=== PATIENT | female | born 1940 | race Caucasian/White ===

== ENCOUNTER 2017-04-04 08:40 | Emergency (ER) | payer MEDICARE, BC ==
[2017-04-04] MEDS ORDERED: OXYMETAZOLINE 0.05% NASL SPRAY 1 SPRAY BOTTLE ONE (08:53)
[2017-04-04] MEDS ORDERED: OXYMETAZOLINE 0.05% NASL SPRAY 1 SPRAY BOTTLE NASAL STA (08:58)
[2017-04-04] MEDS ORDERED: LIDOCAINE/EPINEPHR/TETRACAINE 5 ML BOTTLE TOPICAL ONE ×2 (08:58→10:13)
--- NOTE | 2017-04-04 09:22 | ED ---
General Adult HPI - General Chief complaint: ENT Stated complaint: nose bleed Time Seen by Provider: 04/04/17 08:56 Source: patient, RN notes reviewed Mode of arrival: wheelchair Limitations: no limitations - History of Present Illness Initial comments: Patient 77-year-old female who presents emergency room today with a chief complaint of epistaxis. She does admit that she had a mild nosebleed last night. She states she was able to stop. She states this started once again this morning she been unable to stop it. She does admit that she does have some what frequent nosebleeds but is always been able to control them at home. She states she has seen ENT in the past. Patient denies any blood thinners other than daily aspirin. She denies any other complaints or symptoms. Patient denies any recent fever, chills, shortness of breath, chest pain, back pain, abdominal pain, nausea or vomiting, numbness or tingling, dysuria or hematuria, constipation or diarrhea, headaches or visual changes, or any other complaints. Denies trauma - Related Data Home Medications Medication Instructions Recorded Confirmed Acetaminophen Tab [Tylenol Tab] 1,000 mg PO Q6HR PRN 05/16/16 04/04/17 Allopurinol [Zyloprim] 100 mg PO DAILY 05/16/16 04/04/17 Ascorbic Acid [Vitamin C] 500 mg PO DAILY 05/16/16 04/04/17 Aspirin [Adult Low Dose Aspirin EC] 81 mg PO HS 05/16/16 04/04/17 Atorvastatin [Lipitor] 10 mg PO HS 05/16/16 04/04/17 Indapamide [Lozol] 1.25 mg PO DAILY 05/16/16 04/04/17 Metoprolol Tartrate [Lopressor] 50 mg PO QAM 05/16/16 04/04/17 Multivitamins, Thera [Multivitamin] 1 tab PO DAILY 05/16/16 04/04/17 Valsartan [Diovan] 160 mg PO DAILY 05/16/16 04/04/17 Allergies Allergy/AdvReac Type Severity Reaction Status Date / Time Penicillins Allergy Rash/Hives Verified 04/04/17 09:22 Sulfa (Sulfonamide Allergy mouth sores Verified 04/04/17 09:22 Antibiotics) Review of Systems ROS Statement: Those systems with pertinent positive or pertinent negative responses have been documented in the HPI. ROS Other: All systems not noted in ROS Statement are negative. Past Medical History Past Medical History: Cancer, Hypertension, Osteoarthritis (OA) Additional Past Medical History / Comment(s): gout, hx skin cancer History of Any Multi-Drug Resistant Organisms: None Reported Past Surgical History: Section, Hysterectomy Additional Past Surgical History / Comment(s): gregg cataracts Past Anesthesia/Blood Transfusion Reactions: No Reported Reaction Past Psychological History: No Psychological Hx Reported Smoking Status: Never smoker Past Alcohol Use History: None Reported Past Drug Use History: None Reported - Past Family History Mother Family Medical History: Cancer General Exam - General Exam Comments Initial Comments: General: The patient is awake and alert, in no distress, and does not appear acutely ill. Eye: Pupils are equal, round and reactive to light, extra-ocular movements are intact. No nystagmus. There is normal conjunctiva bilaterally. No signs of icterus. Ears, nose, mouth and throat: There are moist mucous membranes and no oral lesions. Patient does have bright red blood coming from the right nostril. Does have blood in the posterior pharynx. No bleeding appreciated on the left nostril. Neck: The neck is supple, there is no tenderness or JVD. Cardiovascular: There is a regular rate and rhythm. No murmur, rub or gallop is appreciated. Respiratory: Lungs are clear to auscultation, respirations are non-labored, breath sounds are equal. No wheezes, stridor, rales, or rhonchi. Musculoskeletal: Normal ROM, no tenderness. Strength 5/5. Sensation intact. Pulses equal bilaterally 2+. Neurological: A&O x 3. CN II-XII intact, There are no obvious motor or sensory deficits. Coordination appears grossly intact. Speech is normal. Skin: Skin is warm and dry and no rashes or lesions are noted. Psychiatric: Cooperative, appropriate mood & affect, normal judgment. Limitations: no limitations Course Vital Signs 04/04/17 04/04/17 04/04/17 08:48 09:24 10:42 Temperature 98.1 F Pulse Rate 90 82 75 Respiratory 20 17 16 Rate Blood Pressure 186/88 176/78 158/70 O2 Sat by Pulse 97 96 97 Oximetry Procedures - Procedures Initial comment: LET solution was placed on cottonball placed into the right nostril after 2 sprays of Afrin. Patient did have this left in place for approximately 20 minutes. It was taken out bleed had stopped temporarily but the bleeding recurred. There is no sign of an anterior nosebleed. A Murocel packing was used and placed in the right nostril. Patient reexamined and observed for another 30 minutes. No rebleeding. Medical Decision Making - Medical Decision Making Patient examined at this time shows no signs of distress. Patient's right nostril does have a Merocel packing placed. Patient doing well. No blood in the posterior pharynx. Will be discharged home advised follow-up with her ENT doctor Dr. Brush. Was to return if any symptoms increase or worsen. Disposition Clinical Impression: Epistaxis Disposition: HOME SELF-CARE Condition: Good Instructions: Nosebleed (ED) Additional Instructions: Please follow-up with ENT in the next 1-2 days. Please leave packing in place until follow-up appointment. Please return to emergency room if the symptoms increase or worsen or for any other concerns. Referrals: Hayden Alfonso MD [Primary Care Provider] - 1-2 days Cosme Brush MD [STAFF PHYSICIAN] - 1-2 days Time of Disposition: 11:24
[2017-04-04 11:36] VITALS: BP 151/67; PULSE 77; RESP 18; TEMP 97.5
== END 2017-04-04 11:36 | disposition home or self-care (01) ==
LOC: EC 08:40
DX: R04.0 Epistaxis (principal); I10 Essential (primary) hypertension; M19.90 Unspecified osteoarthritis, unspecified site; Z85.828 Personal history of other malignant neoplasm of skin; Z79.82 Long term (current) use of aspirin; Z79.899 Other long term (current) drug therapy; Z88.0 Allergy status to penicillin; Z88.2 Allergy status to sulfonamides
CPT/HCPCS: 30901; 99283

== ENCOUNTER 2017-04-09 09:59 | Emergency (ER) | payer MEDICARE, BC ==
[2017-04-09 10:09] VITALS: BP 125/58; PULSE 71; RESP 20; TEMP 97.3
--- NOTE | 2017-04-09 10:40 | ED ---
ENT HPI - General Chief complaint: ENT Stated complaint: nose plug removal Time Seen by Provider: 04/09/17 10:24 Source: patient, RN notes reviewed Mode of arrival: ambulatory Limitations: no limitations - History of Present Illness Initial comments: 77-year-old female presents emergency department for nasal packing removal. Patient was here last and wants had a nose back secondary epistaxis. Patient states his been no leaking no drainage. Patient states bleeding has stopped. Patient states she has not been able see Dr. Hi ENT because he is out of the office until the . - Related Data Home Medications Medication Instructions Recorded Confirmed Acetaminophen Tab [Tylenol Tab] 1,000 mg PO Q6HR PRN 05/16/16 04/04/17 Allopurinol [Zyloprim] 100 mg PO DAILY 05/16/16 04/04/17 Ascorbic Acid [Vitamin C] 500 mg PO DAILY 05/16/16 04/04/17 Aspirin [Adult Low Dose Aspirin EC] 81 mg PO HS 05/16/16 04/04/17 Atorvastatin [Lipitor] 10 mg PO HS 05/16/16 04/04/17 Indapamide [Lozol] 1.25 mg PO DAILY 05/16/16 04/04/17 Metoprolol Tartrate [Lopressor] 50 mg PO QAM 05/16/16 04/04/17 Multivitamins, Thera [Multivitamin] 1 tab PO DAILY 05/16/16 04/04/17 Valsartan [Diovan] 160 mg PO DAILY 05/16/16 04/04/17 Allergies Allergy/AdvReac Type Severity Reaction Status Date / Time Penicillins Allergy Rash/Hives Verified 04/09/17 10:09 Sulfa (Sulfonamide Allergy mouth sores Verified 04/09/17 10:09 Antibiotics) Review of Systems ROS Statement: Those systems with pertinent positive or pertinent negative responses have been documented in the HPI. ROS Other: All systems not noted in ROS Statement are negative. Past Medical History Past Medical History: Cancer, Hypertension, Osteoarthritis (OA) Additional Past Medical History / Comment(s): gout, hx skin cancer History of Any Multi-Drug Resistant Organisms: None Reported Past Surgical History: Section, Hysterectomy Additional Past Surgical History / Comment(s): gregg cataracts Past Anesthesia/Blood Transfusion Reactions: No Reported Reaction Past Psychological History: No Psychological Hx Reported Smoking Status: Never smoker Past Alcohol Use History: None Reported Past Drug Use History: None Reported - Past Family History Mother Family Medical History: Cancer General Exam Limitations: no limitations General appearance: alert, in no apparent distress Head exam: Present: atraumatic, normocephalic, normal inspection Eye exam: Present: normal appearance, PERRL, EOMI. Absent: scleral icterus, conjunctival injection, periorbital swelling ENT exam: Present: normal oropharynx, mucous membranes moist, TM's normal bilaterally, normal external ear exam, other (Nasal packing noted to the right naris). Absent: normal exam Neck exam: Present: normal inspection, full ROM. Absent: tenderness, meningismus, lymphadenopathy Respiratory exam: Present: normal lung sounds bilaterally. Absent: respiratory distress, wheezes, rales, rhonchi, stridor Cardiovascular Exam: Present: regular rate, normal rhythm, normal heart sounds. Absent: systolic murmur, diastolic murmur, rubs, gallop, clicks Neurological exam: Present: alert, oriented X3, CN II-XII intact Course Vital Signs 04/09/17 10:07 Temperature 97.3 F L Pulse Rate 71 Respiratory 20 Rate Blood Pressure 125/58 O2 Sat by Pulse 99 Oximetry Procedures - Procedures Initial comment: Nasal packing was removed from the right nostril with no complications patient tolerated well there is no rebleeding noted Disposition Clinical Impression: Encounter for removal of nasal packing Disposition: HOME SELF-CARE Condition: Stable Instructions: Nosebleed (ED) Additional Instructions: Please return to the Emergency Department if symptoms worsen or any other concerns. Referrals: Hayden Alfonso MD [Primary Care Provider] - 1-2 days Brian Patterson DO [Doctor of Osteopathic Medicine] - 1-2 days Time of Disposition: 10:36
== END 2017-04-09 10:58 | disposition home or self-care (01) ==
LOC: EC 09:59
DX: Z48.00 Encounter for change or removal of nonsurgical wound dressing (principal); I10 Essential (primary) hypertension; M10.9 Gout, unspecified; M19.90 Unspecified osteoarthritis, unspecified site; Z79.82 Long term (current) use of aspirin; Z79.899 Other long term (current) drug therapy; Z88.0 Allergy status to penicillin; Z88.2 Allergy status to sulfonamides
CPT/HCPCS: 99281

== ENCOUNTER 2017-04-10 04:25 | Emergency (ER) | payer MEDICARE, BC ==
[2017-04-10] MEDS ORDERED: OXYMETAZOLINE 0.05% NASL SPRAY 1 SPRAY BOTTLE NASAL STA (05:04)
--- NOTE | 2017-04-10 06:14 | ED ---
General Adult HPI - General Chief complaint: ENT Stated complaint: NOSE BLEED Time Seen by Provider: 04/10/17 04:29 Source: patient, RN notes reviewed, old records reviewed Mode of arrival: wheelchair Limitations: no limitations - History of Present Illness Initial comments: This is a 77-year-old female here for evaluation of nosebleed, epistaxis. Right near. Patient has been in the ER twice in the past 5 days for similar symptoms. Patient denies trauma to the area today. She at this time is able to get the bleeding stopped with packing, Kleenex - Related Data Home Medications Medication Instructions Recorded Confirmed Acetaminophen Tab [Tylenol Tab] 1,000 mg PO Q6HR PRN 05/16/16 04/10/17 Allopurinol [Zyloprim] 100 mg PO DAILY 05/16/16 04/10/17 Ascorbic Acid [Vitamin C] 500 mg PO DAILY 05/16/16 04/10/17 Aspirin [Adult Low Dose Aspirin EC] 81 mg PO HS 05/16/16 04/10/17 Atorvastatin [Lipitor] 10 mg PO HS 05/16/16 04/10/17 Indapamide [Lozol] 1.25 mg PO DAILY 05/16/16 04/10/17 Metoprolol Tartrate [Lopressor] 50 mg PO QAM 05/16/16 04/10/17 Multivitamins, Thera [Multivitamin] 1 tab PO DAILY 05/16/16 04/10/17 Valsartan [Diovan] 160 mg PO DAILY 05/16/16 04/10/17 Allergies Allergy/AdvReac Type Severity Reaction Status Date / Time Penicillins Allergy Rash/Hives Verified 04/09/17 10:09 Sulfa (Sulfonamide Allergy mouth sores Verified 04/09/17 10:09 Antibiotics) Review of Systems ROS Statement: Those systems with pertinent positive or pertinent negative responses have been documented in the HPI. ROS Other: All systems not noted in ROS Statement are negative. Past Medical History Past Medical History: Cancer, Hypertension, Osteoarthritis (OA) Additional Past Medical History / Comment(s): gout, hx skin cancer History of Any Multi-Drug Resistant Organisms: None Reported Past Surgical History: Section, Hysterectomy Additional Past Surgical History / Comment(s): gregg cataracts Past Anesthesia/Blood Transfusion Reactions: No Reported Reaction Past Psychological History: No Psychological Hx Reported Smoking Status: Never smoker Past Alcohol Use History: None Reported Past Drug Use History: None Reported - Past Family History Mother Family Medical History: Cancer General Exam Limitations: no limitations General appearance: alert, in no apparent distress Head exam: Present: atraumatic, normocephalic, normal inspection Eye exam: Present: normal appearance, PERRL, EOMI. Absent: scleral icterus, conjunctival injection, periorbital swelling ENT exam: Present: normal exam, mucous membranes moist Neck exam: Present: normal inspection. Absent: tenderness, meningismus, lymphadenopathy Respiratory exam: Present: normal lung sounds bilaterally. Absent: respiratory distress, wheezes, rales, rhonchi, stridor Cardiovascular Exam: Present: regular rate, normal rhythm, normal heart sounds. Absent: systolic murmur, diastolic murmur, rubs, gallop, clicks GI/Abdominal exam: Present: soft, normal bowel sounds. Absent: distended, tenderness, guarding, rebound, rigid Extremities exam: Present: normal inspection, full ROM, normal capillary refill. Absent: tenderness, pedal edema, joint swelling, calf tenderness Back exam: Present: normal inspection Neurological exam: Present: alert, oriented X3, CN II-XII intact Psychiatric exam: Present: normal affect, normal mood Skin exam: Present: warm, dry, intact, normal color. Absent: rash Course Vital Signs 04/10/17 04/10/17 04/10/17 04:27 05:41 06:23 Temperature 98.6 F 99 F Pulse Rate 112 H 92 94 Respiratory 18 18 16 Rate Blood Pressure 217/88 157/68 156/68 O2 Sat by Pulse 98 97 98 Oximetry - Reevaluation(s) Reevaluation #1: Spoke with patient at great length regarding nosebleeds, concerns and worries. Patient again is not on blood thinners, denies any trauma to area. Bleeding is remained ceased in emergency room for greater than a half-hour. Medical Decision Making - Medical Decision Making 11/18/1989 ER for evaluation of right nosebleed, bleeding has remained C throughout entire ER stay, no need for further treatment, patient follow up with ENT Disposition Clinical Impression: Epistaxis Disposition: HOME SELF-CARE Condition: Good Instructions: Nosebleed (ED) Referrals: Hayden Alfonso MD [Primary Care Provider] - 1-2 days
[2017-04-10 06:24] VITALS: BP 156/68; PULSE 94; RESP 16; TEMP 99
== END 2017-04-10 06:23 | disposition home or self-care (01) ==
LOC: EC 04:25
DX: R04.0 Epistaxis (principal); M10.9 Gout, unspecified; I10 Essential (primary) hypertension; M19.90 Unspecified osteoarthritis, unspecified site; Z85.828 Personal history of other malignant neoplasm of skin; Z88.0 Allergy status to penicillin; Z88.2 Allergy status to sulfonamides; Z79.82 Long term (current) use of aspirin; Z79.899 Other long term (current) drug therapy
CPT/HCPCS: 99283

== ENCOUNTER 2018-02-19 11:17 | Day surgery (SDC) | payer MEDICARE, BC ==
[2018-02-14 16:21] VITALS: BMI 33.5
[~2018-02-19 11:17] MED LIST: LACTATED RINGERS 1,000 ML IV SCH; LIDOCAINE 1% 20 ML VIAL (10MG/ML) FOR IV START INTRADERMA PRN
[2018-02-19 12:30] VITALS: RESP 16; TEMP 98.6
[2018-02-19] MEDS ORDERED: PROPOFOL 10 MG/ML 20 ML VIAL IV ONE (12:51)
--- NOTE | 2018-02-19 13:11 | P.PCN ---
Date of Procedure: 02/19/18 Procedure(s) Performed: BRIEF HISTORY: Patient is a 77-year-old pleasant white female, scheduled for an elective colonoscopy as a part of screening for colorectal neoplasia. He was noted to have a positive Cologuard testing recently. PROCEDURE PERFORMED: Colonoscopy With snare polypectomy PREOPERATIVE DIAGNOSIS: Screening for colon cancer/positive cologard IV sedation per Anesthesia. PROCEDURE: After informed consent was obtained, the patient, was brought into the endoscopy unit. IV sedation was administered by Anesthesia under continuous monitoring. Digital rectal examination was normal. Initially the Olympus CF- 160 flexible video colonoscope was then inserted in the rectum, gradually advanced into the cecum without any difficulty. Careful examination was performed as the scope was gradually being withdrawn. Ileocecal valve and the appendiceal orifice were visualized and appeared normal. Prep was excellent. Mucosa of the cecum, ascending colon, transverse colon, descending colon, sigmoid colon, and rectum appeared normal. There was a 1 cm polyp noted in the mid rectum that was removed by snare polypectomy Retroflexion was performed in the rectum and no lesions were seen. The patient tolerated the procedure well. IMPRESSION: 1 cm rectal polyp status post polypectomy Rest of the colon appeared normal. RECOMMENDATIONS: Findings of this examination were discussed with the patient as well as her family. She was advised to follow with the biopsy results. If the biopsy shows a tubular adenoma, she can have a repeat colonoscopy in 3 years.
[2018-02-19 13:17] VITALS: PULSE 66
[2018-02-19 13:33] VITALS: BP 134/75
== END 2018-02-19 13:51 | disposition home or self-care (01) ==
LOC: ORWHC2ENDO 11:17
PROVIDERS: ATTEND Internal Medicine Gastroenterology
DX: D12.8 Benign neoplasm of rectum (principal); R19.5 Other fecal abnormalities; I10 Essential (primary) hypertension; E78.5 Hyperlipidemia, unspecified; M10.9 Gout, unspecified; Z85.828 Personal history of other malignant neoplasm of skin; Z79.899 Other long term (current) drug therapy; Z79.82 Long term (current) use of aspirin; Z88.0 Allergy status to penicillin; Z88.2 Allergy status to sulfonamides
CPT/HCPCS: 88305; 45385; J2704

== ENCOUNTER → 2018-06-19 | Outpatient (CLI) | payer MEDICARE, BC ==
--- NOTE | 2018-06-23 08:46 | MM ---
Reason for exam: screening (asymptomatic). Last mammogram was performed 1 year ago. History: Patient is postmenopausal and history of other cancer. Family history of breast cancer in 2 cousins, breast cancer in mother at age 80, and breast cancer in aunt at age 70. Benign cyst aspiration of the right breast. Physical Findings: A clinical breast exam by your physician is recommended on an annual basis and results should be correlated with mammographic findings. MG 3D Screening Mammo W/Cad Bilateral CC and MLO view(s) were taken. Prior study comparison: June 17, 2017, bilateral MG 3d screening mammo w/cad. June 15, 2016, bilateral MG 3d screening mammo w/cad. The breast tissue is heterogeneously dense. This may lower the sensitivity of mammography. No suspicious abnormality. ASSESSMENT: Benign, BI-RAD 2 RECOMMENDATION: Routine screening mammogram of both breasts in 1 year.
== END | disposition home or self-care (01) ==
LOC: RADMAMWWP 11:43
PROVIDERS: ATTEND Internal Medicine
DX: Z12.31 Encounter for screening mammogram for malignant neoplasm of breast (principal)
CPT/HCPCS: 77063; 77067

== ENCOUNTER → 2019-01-23 | Outpatient (CLI) | payer MEDICARE, BC ==
--- NOTE | 2019-01-23 09:50 | CT ---
EXAMINATION TYPE: CT abdomen pelvis w con DATE OF EXAM: 01/23/2019 COMPARISON: None HISTORY: Jaundice and urine discoloration CT DLP: 1518.9 mGycm CONTRAST: CT scan of the abdomen and pelvis is performed without Oral Contrast and with IV Contrast, patient in jected with 80 mL of Isovue 300. FINDINGS: LUNG BASES-: No visible nodule. No infiltrate. LIVER/GB: There is intra and extrahepatic biliary ductal dilatation noted. Consider ERCP to exclude d istal common bile duct lesion. Definite calculus in this region is not seen with certainty. There is evidence of cholelithiasis without gallbladder wall thickening or pericholecystic fluid. No intrahepa tic lesions seen. PANCREAS: No inflammation. No distinct mass. SPLEEN: No splenic enlargement. No lesion seen. ADRENALS: No nodule. No thickening. KIDNEYS/BLADDER: No hydronephrosis. No nephrolithiasis. No distinct renal mass. Urinary bladder g rossly unremarkable. BOWEL: Normal appendix. Normal bowel caliber. No inflammation. GENITAL ORGANS: No gross abnormality. LYMPH NODES: No greater than 1cm abdominal or pelvic lymph nodes are appreciated. AORTA: No significant abnormality. OSSEOUS STRUCTURES: No significant abnormality is seen. OTHER: No significant additional abnormality is seen. IMPRESSION: 1. There is intra and extrahepatic biliary ductal dilatation noted. Consider ERCP to exclude distal c ommon bile duct lesion. Definite calculus in this region is not seen with certainty. 2. Cholelithiasis.
== END | disposition home or self-care (01) ==
LOC: RADCTMAIN 07:43
PROVIDERS: ATTEND Internal Medicine
DX: K80.20 Calculus of gallbladder without cholecystitis without obstruction (principal); K83.8 Other specified diseases of biliary tract; N18.3 Chronic kidney disease, stage 3 (moderate)
CPT/HCPCS: 82565; 84520; 74177; 36415; Q9967

== ENCOUNTER 2019-01-30 13:32 | Emergency (ER) | payer MEDICARE, BC ==
[2019-01-30] MEDS ORDERED: SODIUM CHLORIDE 0.9% 1,000 ML IV STA (15:03)
[2019-01-30] MEDS ORDERED: ACETAMINOPHEN TAB 325 MG TAB PO STA ×2 (15:04→17:02)
[2019-01-30 15:28] LABS: Blood Urea Nitrogen 26 mg/dL (7-17); Sodium 125 mmol/L (137-145); Total Protein 6.4 g/dL (6.3-8.2)
[2019-01-30 15:33] LABS: INR 0.9 (<1.2); Partial Thromboplastin Time 24.9 sec (22.0-30.0)
[2019-01-30 15:38] LABS: Basophils # (A) 0.1 k/uL (0-0.2); Basophils % (A) 0 %; Eosinophils # (A) 0.1 k/uL (0-0.7); Eosinophils % (A) 1 %; HGB 10.9 gm/dL (11.4-16.0); Lymphocytes # (A) 1.2 k/uL (1.0-4.8); Lymphocytes % (A) 5 %; MCH 31.8 pg (25.0-35.0); MCHC 32.1 g/dL (31.0-37.0); MCV 99.1 fL (80.0-100.0); Macrocytosis Slight; Mean Platelet Volume 8.2; Monocytes # (A) 1.5 k/uL (0-1.0); Monocytes % (A) 6 %; Neutrophils # (A) 20.1 k/uL (1.3-7.7); Neutrophils % (A) 87 %; Platelet Count 227 k/uL (150-450); RBC 3.43 m/uL (3.80-5.40); RDW 15.6 % (11.5-15.5); WBC 23.1 k/uL (3.8-10.6)
[2019-01-30 15:43] LABS: ALT 272 U/L (9-52); AST 143 U/L (14-36); Albumin 3.9 g/dL (3.5-5.0); Alkaline Phosphatase 208 U/L (38-126); Anion Gap 12 mmol/L; Calcium 9.6 mg/dL (8.4-10.2); Carbon Dioxide 26 mmol/L (22-30); Chloride 87 mmol/L (98-107); Glucose 132 mg/dL (74-99); Potassium 5.1 mmol/L (3.5-5.1)
[2019-01-30 16:10] LABS: Amorphous Sediment,Urine Rare /hpf; Appearance,Urine Cloudy (Clear); Bilirubin,Urine 2+ (Negative); Blood,Urine Negative (Negative); Color,Urine Dark Brown; Glucose,Urine (UA) Negative (Negative); Hyaline Casts,Urine 17 /lpf (0-2); Ketones,Urine Negative (Negative); Leukocyte Esterase,Urine Negative (Negative); Mucus,Urine Rare /hpf; Nitrite,Urine Negative (Negative); PH, Urine 5.5 (5.0-8.0); Protein,Urine Trace (Negative); RBC,Urine 1 /hpf (0-5); Specific Gravity,Urine 1.017 (1.001-1.035); Squamous Epithelial Cell,Urine 1 /hpf (0-4); Urobilinogen,Urine <2.0 mg/dL (<2.0); WBC,Urine 45 /hpf (0-5); White Blood Cell Casts,Urine 9 /lpf (0)
[2019-01-30 16:19] LABS: Amylase 3107 U/L (30-110); Lipase >20000 U/L (23-300)
[2019-01-30] MEDS ORDERED: metroNIDAZOLE-NS PMX 500 MG in SALINE 1 100ML.BAG IVPB STA (16:49)
[2019-01-30] MEDS ORDERED: cefTRIAXone IN SWFI 1,000 MG/10 ML SYRINGE IVP STA (16:49)
--- NOTE | 2019-01-30 16:54 | ED ---
General Adult HPI - General Chief complaint: Abdominal Pain Stated complaint: abdominal pain Time Seen by Provider: 01/30/19 14:37 Source: patient, RN notes reviewed Mode of arrival: ambulatory Limitations: no limitations - History of Present Illness Initial comments: 78-year-old female with a past medical history of melanoma hyperlipidemia, hypertension, osteoarthritis presents to the emergency department for a chief complaint of abdominal pain. Patient states that 2 days ago she had a a placement of a Avilez covered metal stent in the CBD following biliary sphincterotomy. 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 Patient states that today he started upper abdominal pain and bloating. States that she called the surgeon who told her to come to the ER for possible pancreatitis. States she does think that her jaundice is improving since the stent was placed. Denies any fevers or chills at home. Patient has no other complaints at this time including shortness of breath, chest pain, nausea or vomiting, headache, or visual changes. - Related Data Home Medications Medication Instructions Recorded Confirmed Acetaminophen Tab [Tylenol Tab] 1,000 mg PO Q6HR PRN 05/16/16 01/30/19 Allopurinol [Zyloprim] 200 mg PO DAILY 05/16/16 01/30/19 Aspirin [Adult Low Dose Aspirin EC] 81 mg PO HS 05/16/16 01/30/19 Atorvastatin [Lipitor] 10 mg PO HS 05/16/16 01/30/19 Indapamide [Lozol] 1.25 mg PO BID 05/16/16 01/30/19 Metoprolol Tartrate [Lopressor] 50 mg PO DAILY@0800,1800 05/16/16 01/30/19 Multivitamins, Thera [Multivitamin] 1 tab PO DAILY 05/16/16 01/30/19 Valsartan [Diovan] 160 mg PO DAILY 05/16/16 01/30/19 amLODIPine [Norvasc] 5 mg PO DAILY@1800 02/14/18 01/30/19 Hydrocodone/Acetaminophen [[place] 0.5 tab PO Q6HR PRN 01/30/19 01/30/19 7.5-325] Allergies Allergy/AdvReac Type Severity Reaction Status Date / Time Penicillins Allergy Rash/Hives Verified 01/30/19 14:24 Sulfa (Sulfonamide Allergy mouth sores Verified 01/30/19 14:24 Antibiotics) lisinopril [From Zestril] AdvReac Cough Verified 01/30/19 14:24 Review of Systems ROS Statement: Those systems with pertinent positive or pertinent negative responses have been documented in the HPI. ROS Other: All systems not noted in ROS Statement are negative. Past Medical History Past Medical History: Cancer, Hyperlipidemia, Hypertension, Osteoarthritis (OA) Additional Past Medical History / Comment(s): Gout. Hx skin cancer - MELANOMA X1. POS COLOGUARD TEST. OCC BLOOD W/ BOWEL MOVEMENT. History of Any Multi-Drug Resistant Organisms: None Reported Past Surgical History: Section, Hysterectomy Additional Past Surgical History / Comment(s): C-S X3. Omero cataracts. COLONOS COPY Past Anesthesia/Blood Transfusion Reactions: No Reported Reaction Past Psychological History: No Psychological Hx Reported Smoking Status: Never smoker Past Alcohol Use History: None Reported, Rare Past Drug Use History: None Reported - Past Family History Mother Family Medical History: Cancer Father Family Medical History: Cancer General Exam Limitations: no limitations General appearance: alert, in no apparent distress Head exam: Present: atraumatic, normocephalic, normal inspection Eye exam: Present: normal appearance, PERRL, EOMI. Absent: scleral icterus, c onjunctival injection, periorbital swelling ENT exam: Present: normal exam, mucous membranes moist Neck exam: Present: normal inspection, full ROM. Absent: tenderness, meningismus, lymphadenopathy Respiratory exam: Present: normal lung sounds bilaterally. Absent: respiratory distress, wheezes, rales, rhonchi, stridor Cardiovascular Exam: Present: regular rate, normal rhythm, normal heart sounds. Absent: systolic murmur, diastolic murmur, rubs, gallop, clicks GI/Abdominal exam: Present: soft, tenderness (generalized tenderness of the abdomen worse in the epigastric area), normal bowel sounds. Absent: distended, guarding, rebound, rigid Neurological exam: Present: alert, oriented X3, CN II-XII intact Psychiatric exam: Present: normal affect, normal mood Skin exam: Present: other (jaundice) Course Vital Signs 01/30/19 01/30/19 01/30/19 13:57 15:22 16:00 Temperature 100.5 F H Pulse Rate 76 77 77 Respiratory 18 18 18 Rate Blood Pressure 144/60 148/57 129/55 O2 Sat by Pulse 97 96 97 Oximetry 01/30/19 01/30/19 17:00 17:35 Temperature 99.3 F Pulse Rate 82 85 Respiratory 20 20 Rate Blood Pressure 132/55 168/66 O2 Sat by Pulse 96 Oximetry Medical Decision Making - Medical Decision Making 78-year-old female status post stent placement in the CBD by ERCP 3 days ago presents to the emergency department for a chief complaint of abdominal pain. Patient spoke with Dr Francisco today and was told to come to the ER for possible pancreatitis. CBC does show a white blood cell count of 23 which is increased. CMP does show sodium of 125, patient given a liter of normal saline. Transaminitis seems to be improving as well as patient's hyperbilirubinemia. However amylase and lipase are elevated. Lipase is greater than 20,000 and amylase is 3107. I do not have any previous lipase values but this is Likely the cause of patient's pain. Urine negative. minimal pleural reaction at lung bases without pulmonary consolidation.CT shows there is placement of biliary stent compared to recent exam. There is new mesenteric edema and upper abdomen compared to last exam. There is a 1.5 cm hypodense area on the left lateral aspect of the biliary stent that could be low density a chronic mass. Minimal scarring in the lung bases. At this point I spoke with Dr. Rubio at [facility], recommends ER to ER transfer by EMS. - Lab Data Result diagrams: 01/30/19 14:25 01/30/19 14:25 Lab Results 01/30/19 01/30/19 01/30/19 Range/Units 14:25 14:25 14:25 WBC 23.1 H (3.8-10.6) k/uL RBC 3.43 L (3.80-5.40) m/uL Hgb 10.9 L (11.4-16.0) gm/dL Hct 34.0 (34.0-46.0) % MCV 99.1 (80.0-100.0) fL MCH 31.8 (25.0-35.0) pg MCHC 32.1 (31.0-37.0) g/dL RDW 15.6 H (11.5-15.5) % Plt Count 227 (150-450) k/uL Neutrophils % 87 % Lymphocytes % 5 % Monocytes % 6 % Eosinophils % 1 % Basophils % 0 % Neutrophils # 20.1 H (1.3-7.7) k/uL Lymphocytes # 1.2 (1.0-4.8) k/uL Monocytes # 1.5 H (0-1.0) k/uL Eosinophils # 0.1 (0-0.7) k/uL Basophils # 0.1 (0-0.2) k/uL Macrocytosis Slight PT (9.0-12.0) sec INR (<1.2) APTT (22.0-30.0) sec Sodium 125 L (137-145) mmol/L Potassium 5.1 (3.5-5.1) mmol/L Chloride 87 L (98-107) mmol/L Carbon Dioxide 26 (22-30) mmol/L Anion Gap 12 mmol/L BUN 26 H (7-17) mg/dL Creatinine 1.08 H (0.52-1.04) mg/dL Est GFR (CKD-EPI)AfAm 56 (>60 ml/min/1.73 sqM) Est GFR (CKD-EPI)NonAf 49 (>60 ml/min/1.73 sqM) Glucose 132 H (74-99) mg/dL Plasma Lactic Acid Krist[place] 1.1 (0.7-2.0) mmol/L Calcium 9.6 (8.4-10.2) mg/dL Total Bilirubin 8.0 H (0.2-1.3) mg/dL AST 143 H (14-36) U/L ALT 272 H (9-52) U/L Alkaline Phosphatase 208 H (38-126) U/L Total Protein 6.4 (6.3-8.2) g/dL Albumin 3.9 (3.5-5.0) g/dL Amylase 3107 H* (30-110) U/L Lipase >41396 H (23-300) U/L Urine Color Urine Appearance (Clear) Urine pH (5.0-8.0) Ur Specific [place] (1.001-1.035) Urine Protein (Negative) Urine Glucose (UA) (Negative) Urine Ketones (Negative) Urine Blood (Negative) Urine Nitrite (Negative) Urine Bilirubin (Negative) Urine Urobilinogen (<2.0) mg/dL Ur Leukocyte Esterase (Negative) Urine RBC (0-5) /hpf Urine WBC (0-5) /hpf Ur Squamous Epith Cells (0-4) /hpf Amorphous Sediment (None) /hpf Hyaline Casts (0-2) /lpf WBC Casts (0) /lpf Urine Mucus (None) /hpf 01/30/19 01/30/19 Range/Units 14:25 15:45 WBC (3.8-10.6) k/uL RBC (3.80-5.40) m/uL Hgb (11.4-16.0) gm/dL Hct (34.0-46.0) % MCV (80.0-100.0) fL MCH (25.0-35.0) pg MCHC (31.0-37.0) g/dL RDW (11.5-15.5) % Plt Count (150-450) k/uL Neutrophils % % Lymphocytes % % Monocytes % % Eosinophils % % Basophils % % Neutrophils # (1.3-7.7) k/uL Lymphocytes # (1.0-4.8) k/uL Monocytes # (0-1.0) k/uL Eosinophils # (0-0.7) k/uL Basophils # (0-0.2) k/uL Macrocytosis PT 10.0 (9.0-12.0) sec INR 0.9 (<1.2) APTT 24.9 (22.0-30.0) sec Sodium (137-145) mmol/L Potassium (3.5-5.1) mmol/L Chloride (98-107) mmol/L Carbon Dioxide (22-30) mmol/L Anion Gap mmol/L BUN (7-17) mg/dL Creatinine (0.52-1.04) mg/dL Est GFR (CKD-EPI)AfAm (>60 ml/min/1.73 sqM) Est GFR (CKD-EPI)NonAf (>60 ml/min/1.73 sqM) Glucose (74-99) mg/dL Plasma Lactic Acid Kristian (0.7-2.0) mmol/L Calcium (8.4-10.2) mg/dL Total Bilirubin (0.2-1.3) mg/dL AST (14-36) U/L ALT (9-52) U/L Alkaline Phosphatase (38-126) U/L Total Protein (6.3-8.2) g/dL Albumin (3.5-5.0) g/dL Amylase (30-110) U/L Lipase (23-300) U/L Urine Color Dark Brown Urine Appearance Cloudy H (Clear) Urine pH 5.5 (5.0-8.0) Ur Specific [place] 1.017 (1.001-1.035) Urine Protein Trace H (Negative) Urine Glucose (UA) Negative (Negative) Urine Ketones Negative (Negative) Urine Blood Negative (Negative) Urine Nitrite Negative (Negative) Urine Bilirubin 2+ H (Negative) Urine Urobilinogen <2.0 (<2.0) mg/dL Ur Leukocyte Esterase Negative (Negative) Urine RBC 1 (0-5) /hpf Urine WBC 45 H (0-5) /hpf Ur Squamous Epith Cells 1 (0-4) /hpf Amorphous Sediment Rare H (None) /hpf Hyaline Casts 17 H (0-2) /lpf WBC Casts 9 (0) /lpf Urine Mucus Rare H (None) /hpf Disposition Clinical Impression: Acute pancreatitis after endoscopic retrograde cholangiopancreatography (ERCP) Disposition: OTHER INSTITUTION NOT DEFINED Condition: Fair Is patient prescribed a controlled substance at d/c from ED?: No Referrals: Hayden Alfonso MD [Primary Care Provider] - 1-2 days Time of Disposition: 18:31 - Out of Hospital Transfer - Req. Specs Out of Hospital Transfer - Requested Specifics: Other Emergency Center ([facility])
--- NOTE | 2019-01-30 17:24 | XR ---
EXAMINATION TYPE: XR chest 2V DATE OF EXAM: 01/30/2019 COMPARISON: NONE HISTORY: Fever TECHNIQUE: Frontal and lateral views of the chest are obtained. FINDINGS: There is slight blunting of the costophrenic angles. Heart and mediastinum are normal. The re are no hilar masses. There are chest leads. Bony thorax is intact. IMPRESSION: Minimal pleural reaction at the lung bases. Normal heart. No pulmonary consolidation.
--- NOTE | 2019-01-30 18:01 | CT ---
EXAMINATION TYPE: CT abdomen pelvis w con DATE OF EXAM: 01/30/2019 COMPARISON: 01/23/2019 HISTORY: Post ERCP [address] DLP: 1022.5 mGycm Automated exposure control for dose reduction was used. TECHNIQUE: Helical acquisition of images was performed from the lung bases through the pelvis. CONTRAST: Performed without Oral Contrast and with IV Contrast, patient injected with 80 mL of Isovue 300. FINDINGS: There is mild atelectasis at the lung bases. Heart size is fairly normal. There is no pericardial eff usion. There is no pleural effusion or pneumothorax. There is air in the biliary tree. There is biliary stent noted in fairly good position. Bile ducts ar e not dilated. Spleen appears normal. There is 1.5 cm hypodense area in the pancreatic head region on the left lateral aspect of the biliary stent. Stomach appears normal. There is mild edema in the upp er abdominal small bowel mesentery. There is a contracted gallbladder with calcified gallstones. There is no adrenal mass. The kidneys show satisfactory contrast opacification. There is no hydroneph rosis. There is no retroperitoneal adenopathy. There is 2 cm cortical cyst medial left kidney. Ureter s are not dilated. There is no inguinal hernia. There is no evidence of free air. There is no ascites. There is no evide nce of bowel obstruction. There is moderate L3-4 and L4-5 bony spinal stenosis. There is no lumbar compression fracture. There is multilevel spondylotic changes in the lumbar spine. Bony pelvis is intact.. IMPRESSION: THERE IS PLACEMENT OF BILIARY STENT COMPARED TO RECENT EXAM. THERE IS NEW MESENTERIC EDEMA IN THE UPP ER ABDOMEN COMPARED TO LAST EXAM. 1.5 CM HYPODENSE AREA ON THE LEFT LATERAL ASPECT OF THE BILIARY STENT COULD BE LOW-DENSITY PANCREATIC MASS. FOLLOW-UP RECOMMENDED. THERE IS MINIMAL SCARRING OR SUBSEGMENTAL ATELECTASIS AT THE LUNG BASES UNCHANGED.
[2019-01-30] MEDS ORDERED: HYDROcodone/APAP 5-325MG 1 EACH TAB PO STA (20:25)
[2019-01-30 20:32] VITALS: BP 132/65; PULSE 81; RESP 20; TEMP 98.9
== END 2019-01-30 20:33 | disposition short-term general hospital (02) ==
LOC: EC 13:32
DX: K91.89 Other postprocedural complications and disorders of digestive system (principal); K85.90 Acute pancreatitis without necrosis or infection, unspecified; R74.8 Abnormal levels of other serum enzymes; J94.8 Other specified pleural conditions; R60.0 Localized edema; R91.8 Other nonspecific abnormal finding of lung field; R17 Unspecified jaundice; E78.5 Hyperlipidemia, unspecified; I10 Essential (primary) hypertension; M10.9 Gout, unspecified; M19.90 Unspecified osteoarthritis, unspecified site; Z88.0 Allergy status to penicillin; Z88.2 Allergy status to sulfonamides; Z88.8 Allergy status to other drugs, medicaments and biological substances; Z79.82 Long term (current) use of aspirin; Z79.899 Other long term (current) drug therapy; Z85.820 Personal history of malignant melanoma of skin; Z87.19 Personal history of other diseases of the digestive system; Z96.89 Presence of other specified functional implants
CPT/HCPCS: 36415; 80053; 82150; 83605; 83690; 85025; 85610; 85730; 81001; 87086; 71046; 74177; 99285; 96365; 96375; 96361; J0696; Q9967

== ENCOUNTER 2019-02-21 10:14 | Emergency (ER) | payer MEDICARE, BC ==
[2019-02-21 10:31] VITALS: TEMP 99.5
[2019-02-21] MEDS ORDERED: ONDANSETRON 4 MG/2 ML VIAL IVP STA (11:16)
[2019-02-21] MEDS ORDERED: SODIUM CHLORIDE 0.9% 1,000 ML IV ONE (11:16)
[2019-02-21] MEDS ORDERED: KETOROLAC 30 MG/ML 1 ML VIAL IVP STA (11:17)
--- NOTE | 2019-02-21 11:24 | ED ---
Abdominal Pain HPI - General Chief Complaint: Abdominal Pain Stated Complaint: abd/back pain, nausea Time Seen by Provider: 02/21/19 11:04 Source: patient Mode of arrival: wheelchair Limitations: no limitations - History of Present Illness Initial Comments: Patient is a 78-year-old female who presents with a chief complaint of abdominal pain for 3 days. Patient states that it is a constant pain. She cannot identify an inciting incident. There are no aggravating or alleviating factors. She admits nausea and vomiting. She says her bowel movements have been normal. She has a history of a recent diagnosis of pancreatic cancer for which she is being followed by hematology oncology, she had a biliary stent placed at [facility] several weeks ago. She states that since time of her surgery she had been feeling better up until her symptoms started. She denies chest pain or shortness of breath, lightheadedness or dizziness. She admits to nausea and vomiting. She states that she does not have any pain with urination nor changes in her bowel movements. - Related Data Home Medications Medication Instructions Recorded Confirmed Acetaminophen Tab [Tylenol Tab] 1,000 mg PO Q6HR PRN 05/16/16 01/30/19 Allopurinol [Zyloprim] 200 mg PO DAILY 05/16/16 01/30/19 Aspirin [Adult Low Dose Aspirin EC] 81 mg PO HS 05/16/16 01/30/19 Atorvastatin [Lipitor] 10 mg PO HS 05/16/16 01/30/19 Indapamide [Lozol] 1.25 mg PO BID 05/16/16 01/30/19 Metoprolol Tartrate [Lopressor] 50 mg PO DAILY@0800,1800 05/16/16 01/30/19 Multivitamins, Thera [Multivitamin] 1 tab PO DAILY 05/16/16 01/30/19 Valsartan [Diovan] 160 mg PO DAILY 05/16/16 01/30/19 amLODIPine [Norvasc] 5 mg PO DAILY@1800 02/14/18 01/30/19 Hydrocodone/Acetaminophen [[place] 0.5 tab PO Q6HR PRN 01/30/19 01/30/19 7.5-325] Allergies Allergy/AdvReac Type Severity Reaction Status Date / Time Penicillins Allergy Rash/Hives Verified 02/21/19 10:31 Sulfa (Sulfonamide Allergy mouth sores Verified 02/21/19 10:31 Antibiotics) lisinopril [From Zestril] AdvReac Cough Verified 02/21/19 10:31 Review of Systems ROS Statement: Those systems with pertinent positive or pertinent negative responses have been documented in the HPI. ROS Other: All systems not noted in ROS Statement are negative. Gastrointestinal: Reports: abdominal pain, nausea, vomiting Past Medical History Past Medical History: Cancer, Hyperlipidemia, Hypertension, Osteoarthritis (OA) Additional Past Medical History / Comment(s): Gout. Hx skin cancer - MELANOMA X1. POS COLOGUARD TEST. OCC BLOOD W/ BOWEL MOVEMENT. PANCREATIC CANCER History of Any Multi-Drug Resistant Organisms: None Reported Past Surgical History: Section, Hysterectomy Additional Past Surgical History / Comment(s): C-S X3. Omero cataracts. COLONOSCOPY Past Anesthesia/Blood Transfusion Reactions: No Reported Reaction Past Psychological History: No Psychological Hx Reported Smoking Status: Never smoker Past Alcohol Use History: None Reported, Rare Past Drug Use History: None Reported - Past Family History Mother Family Medical History: Cancer Father Family Medical History: Cancer General Exam Limitations: no limitations General appearance: alert, in no apparent distress Head exam: Present: atraumatic, normocephalic Eye exam: Present: normal appearance. Absent: scleral icterus ENT exam: Present: normal exam, mucous membranes moist Neck exam: Present: normal inspection Respiratory exam: Present: normal lung sounds bilaterally. Absent: respiratory distress, wheezes Cardiovascular Exam: Present: regular rate, normal rhythm GI/Abdominal exam: Present: soft, tenderness (Patient has generalized tenderness mostly in the epigastric region and some tenderness to palpation and percussion of the back). Absent: distended Rectal exam: Present: deferred Extremities exam: Present: normal inspection Back exam: Present: normal inspection Neurological exam: Present: alert, oriented X3 Psychiatric exam: Present: normal affect, normal mood Skin exam: Present: warm, dry, intact Course Vital Signs 02/21/19 02/21/19 02/21/19 10:29 13:26 13:30 Temperature 99.5 F Pulse Rate 76 78 Respiratory 16 20 Rate Blood Pressure 140/70 137/62 O2 Sat by Pulse 96 97 96 Oximetry 02/21/19 13:40 Temperature Pulse Rate 80 Respiratory 20 Rate Blood Pressure 131/57 O2 Sat by Pulse 98 Oximetry Medical Decision Making - Medical Decision Making Patient presents with chief complaint of abdominal pain. On initial evaluation, vitals are stable, patient is in no acute distress. Concern for pancreatitis given recent history of new diagnosis of pancreatic cancer and biliary stent placement. Patient will be evaluated with basic labs including liver profile and lipase. Urinalysis sent. Chest x-ray and troponin will also be drawn. Pending EKG at this time. 12:37 PM EKG performed at 1211 shows normal sinus rhythm with left axis deviation and a left bundle branch block. Ventricular rate is 73 bpm, segments within normal limits, no acute signs of ischemia. No previous EKGs to compare to, patient does not have any chest complaints today. Lab evaluation shows a lipase within normal limits, urinalysis shows no evidence of infection, cardiac enzymes are negative. Patient does have a white blood cell count of 18.8. Chest x-ray shows no acute process, currently pending computed tomography scan of the abdomen and pelvis. 2:[address] evaluation shows pneumobilia, likely secondary to recent stent placement, there is the previously known pancreatic head mass concerning for neoplasm, and gallbladder distention with wall thickening and pericholecystic fluid. Evaluat ion is consistent with a white count of 18.8. Case discussed with Dr. Garrett who recommends transfer to [facility] for continuity of care. I discussed the patient, she is agreeable. We'll contact transfer team for [facility]. Patient given her initial dose of Rocephin and Flagyl. 2:47 PM Case discussed with Dr. Ashley at [facility], he excess admission to CAT 2 for acute care surgery evaluation. Patient stable for transfer, patient family agreeable. - Lab Data Result diagrams: 02/21/19 11:42 02/21/19 11:42 Lab Results 02/21/19 02/21/19 02/21/19 Range/Units 11:27 11:42 11:42 WBC 18.8 H (3.8-10.6) k/uL RBC 3.91 (3.80-5.40) m/uL Hgb 12.6 (11.4-16.0) gm/dL Hct 37.5 (34.0-46.0) % MCV 95.7 (80.0-100.0) fL MCH 32.2 (25.0-35.0) pg MCHC 33.6 (31.0-37.0) g/dL RDW 15.2 (11.5-15.5) % Plt Count 166 (150-450) k/uL Neutrophils % 81 % Lymphocytes % 7 % Monocytes % 10 % Eosinophils % 1 % Basophils % 0 % Neutrophils # 15.2 H (1.3-7.7) k/uL Lymphocytes # 1.4 (1.0-4.8) k/uL Monocytes # 1.8 H (0-1.0) k/uL Eosinophils # 0.1 (0-0.7) k/uL Basophils # 0.1 (0-0.2) k/uL Sodium 131 L (137-145) mmol/L Potassium 4.7 (3.5-5.1) mmol/L Chloride 93 L (98-107) mmol/L Carbon Dioxide 26 (22-30) mmol/L Anion Gap 12 mmol/L BUN 18 H (7-17) mg/dL Creatinine 0.78 (0.52-1.04) mg/dL Est GFR (CKD-EPI)AfAm 83 (>60 ml/min/1.73 sqM) Est GFR (CKD-EPI)NonAf 72 (>60 ml/min/1.73 sqM) Glucose 146 H (74-99) mg/dL Calcium 9.5 (8.4-10.2) mg/dL Total Bilirubin 1.6 H (0.2-1.3) mg/dL AST 38 H (14-36) U/L ALT 40 (9-52) U/L Alkaline Phosphatase 67 (38-126) U/L Troponin I (0.000-0.034) ng/mL Total Protein 6.6 (6.3-8.2) g/dL Albumin 4.1 (3.5-5.0) g/dL Lipase 237 (23-300) U/L Urine Color Red Urine Appearance Clear (Clear) Urine pH 6.0 (5.0-8.0) Ur Specific [place] 1.029 (1.001-1.035) Urine Protein 2+ H (Negative) Urine Glucose (UA) Negative (Negative) Urine Ketones Trace H (Negative) Urine Blood Negative (Negative) Urine Nitrite Negative (Negative) Urine Bilirubin 1+ H (Negative) Urine Urobilinogen 2.0 (<2.0) mg/dL Ur Leukocyte Esterase Trace H (Negative) Urine RBC 5 (0-5) /hpf Urine WBC 3 (0-5) /hpf Ur Squamous Epith Cells 1 (0-4) /hpf Hyaline Casts 9 H (0-2) /lpf Urine Mucus Moderate H (None) /hpf 02/21/19 Range/Units 11:42 WBC (3.8-10.6) k/uL RBC (3.80-5.40) m/uL Hgb (11.4-16.0) gm/dL Hct (34.0-46.0) % MCV (80.0-100.0) fL MCH (25.0-35.0) pg MCHC (31.0-37.0) g/dL RDW (11.5-15.5) % Plt Count (150-450) k/uL Neutrophils % % Lymphocytes % % Monocytes % % Eosinophils % % Basophils % % Neutrophils # (1.3-7.7) k/uL Lymphocytes # (1.0-4.8) k/uL Monocytes # (0-1.0) k/uL Eosinophils # (0-0.7) k/uL Basophils # (0-0.2) k/uL Sodium (137-145) mmol/L Potassium (3.5-5.1) mmol/L Chloride (98-107) mmol/L Carbon Dioxide (22-30) mmol/L Anion Gap mmol/L BUN (7-17) mg/dL Creatinine (0.52-1.04) mg/dL Est GFR (CKD-EPI)AfAm (>60 ml/min/1.73 sqM) Est GFR (CKD-EPI)NonAf (>60 ml/min/1.73 sqM) Glucose (74-99) mg/dL Calcium (8.4-10.2) mg/dL Total Bilirubin (0.2-1.3) mg/dL AST (14-36) U/L ALT (9-52) U/L Alkaline Phosphatase (38-126) U/L Troponin I <0.012 (0.000-0.034) ng/mL Total Protein (6.3-8.2) g/dL Albumin (3.5-5.0) g/dL Lipase (23-300) U/L Urine Color Urine Appearance (Clear) Urine pH (5.0-8.0) Ur Specific [place] (1.001-1.035) Urine Protein (Negative) Urine Glucose (UA) (Negative) Urine Ketones (Negative) Urine Blood (Negative) Urine Nitrite (Negative) Urine Bilirubin (Negative) Urine Urobilinogen (<2.0) mg/dL Ur Leukocyte Esterase (Negative) Urine RBC (0-5) /hpf Urine WBC (0-5) /hpf Ur Squamous Epith Cells (0-4) /hpf Hyaline Casts (0-2) /lpf Urine Mucus (None) /hpf Disposition Clinical Impression: Acute cholecystitis, Pancreatic cancer Disposition: OTHER INSTITUTION NOT DEFINED Condition: Good Is patient prescribed a controlled substance at d/c from ED?: No Referrals: Hayden Alfonso MD [Primary Care Provider] - 1-2 days - Out of Hospital Transfer - Req. Specs Out of Hospital Transfer - Requested Specifics: Other Emergency Center ([facility], CAT 2 for ACS evaluation)
[2019-02-21 11:59] LABS: Basophils # (A) 0.1 k/uL (0-0.2); Basophils % (A) 0 %; Eosinophils # (A) 0.1 k/uL (0-0.7); Eosinophils % (A) 1 %; HCT 37.5 % (34.0-46.0); HGB 12.6 gm/dL (11.4-16.0); Lymphocytes # (A) 1.4 k/uL (1.0-4.8); Lymphocytes % (A) 7 %; MCH 32.2 pg (25.0-35.0); MCHC 33.6 g/dL (31.0-37.0); MCV 95.7 fL (80.0-100.0); Mean Platelet Volume 7.9; Monocytes # (A) 1.8 k/uL (0-1.0); Monocytes % (A) 10 %; Neutrophils # (A) 15.2 k/uL (1.3-7.7); Neutrophils % (A) 81 %; Platelet Count 166 k/uL (150-450); RBC 3.91 m/uL (3.80-5.40); RDW 15.2 % (11.5-15.5); WBC 18.8 k/uL (3.8-10.6)
[2019-02-21 12:03] LABS: Appearance,Urine Clear (Clear); Bilirubin,Urine 1+ (Negative); Blood,Urine Negative (Negative); Color,Urine Red; Glucose,Urine (UA) Negative (Negative); Hyaline Casts,Urine 9 /lpf (0-2); Ketones,Urine Trace (Negative); Leukocyte Esterase,Urine Trace (Negative); Mucus,Urine Moderate /hpf; Nitrite,Urine Negative (Negative); Protein,Urine 2+ (Negative); RBC,Urine 5 /hpf (0-5); Specific Gravity,Urine 1.029 (1.001-1.035); Squamous Epithelial Cell,Urine 1 /hpf (0-4); WBC,Urine 3 /hpf (0-5)
[2019-02-21 12:17] LABS: Albumin 4.1 g/dL (3.5-5.0); Calcium 9.5 mg/dL (8.4-10.2); Total Bilirubin 1.6 mg/dL (0.2-1.3); Total Protein 6.6 g/dL (6.3-8.2)
[2019-02-21 12:27] LABS: Potassium 4.7 mmol/L (3.5-5.1)
--- NOTE | 2019-02-21 12:32 | XR ---
EXAMINATION TYPE: XR chest 2V DATE OF EXAM: 02/21/2019 HISTORY: Pain. REFERENCE: Previous study dated 01/30/2019. FINDINGS: There is a small, left pleural reaction. The lungs appear clear. Pleural spaces are clear. Heart size is upper limits of normal. IMPRESSION: CHRONIC LEFT PLEURAL REACTION.
[2019-02-21 13:42] VITALS: BP 131/57; PULSE 80; RESP 20
--- NOTE | 2019-02-21 14:01 | CT ---
EXAMINATION TYPE: CT abdomen pelvis w con DATE OF EXAM: 02/21/2019 REFERENCE: Previous study dated 01/30/2019. HISTORY: Pain HISTORY: Pain, recent diagnosis of pancreatic CA CT DLP: 1502.9 mGy Automated exposure control for dose reduction was used. TECHNIQUE: Helical acquisition through the abdomen and pelvis was obtained following the oral ingesti on of without Oral Contrast and following intravenous administration of 100 mL of Isovue 300. The bryson a was reformatted in axial, coronal and sagittal projections. FINDINGS: There is dependent atelectasis in the dependent portions of the lungs. There is no pleural or pericardial fluid. The heart is minimally enlarged. There is a small sliding hiatal hernia. There is pneumobilia. There is an endotracheal biliary stent extending to the level of the head of th e pancreas. There is some hypodensity surrounding the distal portion of the stent. This may represent the patient's known cancer. The pancreatic duct is visualized but not enlarged. The gallbladder is d istended. Gallbladder wall thickening and cholelithiasis. There is fat stranding adjacent to the gall bladder. The spleen is normal. Both adrenal glands are normal. Both kidneys demonstrate function. There is a 2 cm, simple appearing left renal cyst, unchanged from previous. There is mild atheromatous calcification of the visualized arterial tree. There is no significant retroperitoneal, iliac or inguinal adenopathy. The bladder is not distended. The uterus and ovaries are not visualized. There is modest free fluid within the pelvis. There is no significant diverticular change and there is no radiographic evidence of diverticulitis. The majority of the left side of the colon is collapsed making it difficult to assess colonic wall th ickness. The appendix is not visualized. Small bowel loops are unremarkable. There is hypertrophic spondylosis and facet arthropathy within the spine. IMPRESSION: 1. EVIDENCE OF ACUTE CHOLECYSTITIS WITH GALLBLADDER WALL THICKENING PERICHOLECYSTIC FLUID AND ADJACEN T FAT STRANDING. 2. EVIDENCE OF THE PATIENT'S KNOWN PANCREATIC CANCER WITH PNEUMOBILIA. 3. SMALL HIATAL HERNIA. 4. SIMPLE APPEARING, 2 CM LEFT RENAL CYST. 5. POSSIBLE LEFT SIDE OF THE COLON. PLEASE CORRELATE CLINICALLY TO EXCLUDE COLITIS. 6. DEGENERATIVE CHANGES WITHIN THE SPINE.
[2019-02-21] MEDS ORDERED: cefTRIAXone IN SWFI 1,000 MG/10 ML SYRINGE IVP STA (14:12)
[2019-02-21] MEDS ORDERED: metroNIDAZOLE-NS PMX 500 MG in SALINE 1 100ML.BAG IVPB STA (14:12)
== END 2019-02-21 15:26 | disposition other institution (70) ==
LOC: EC 10:14
DX: K81.9 Cholecystitis, unspecified (principal); C25.9 Malignant neoplasm of pancreas, unspecified; I45.10 Unspecified right bundle-branch block; E78.5 Hyperlipidemia, unspecified; I10 Essential (primary) hypertension; Z85.820 Personal history of malignant melanoma of skin; Z90.710 Acquired absence of both cervix and uterus; Z79.82 Long term (current) use of aspirin; Z96.89 Presence of other specified functional implants; Z79.899 Other long term (current) drug therapy; Z88.0 Allergy status to penicillin; Z88.2 Allergy status to sulfonamides; Z88.8 Allergy status to other drugs, medicaments and biological substances
CPT/HCPCS: 36415; 93005; 80053; 83690; 84484; 85025; 81001; 71046; 74177; 99285; 96365; 96375 ×3; 96361 ×2; J2405; J0696; J1885; Q9967

== ENCOUNTER → 2019-03-19 | Outpatient (CLI) | payer MEDICARE, BC ==
--- NOTE | 2019-03-19 14:45 | US ---
EXAMINATION TYPE: US venous doppler duplex UE DATE OF EXAM: 03/19/2019 COMPARISON: NONE CLINICAL HISTORY: M79.622,M79.621 PAIN IN RT AND LT UPPER LIMBS. Patient states having a port placed in right side on 03/11/2019. On baby aspirin. No redness or swelling. Patient states she is uncomfo rtable she she lays on her side. Patient states having IV in left arm. SIDE PERFORMED: Bilateral Right Arm: Negative for DVT Left Arm: Negative for DVT. Positive for SVT in left cephalic vein superior and at brachial fossa. Grayscale, color doppler, spectral doppler imaging performed of the deep veins of the bilateral upper extremities. There is normal flow, compressibility and vascular waveforms. IMPRESSION: Acute superficial venous thrombosis left cephalic vein.
== END | disposition home or self-care (01) ==
LOC: RADUSWWP 13:05
PROVIDERS: ATTEND Internal Medicine Hematology & Oncology
DX: I82.612 Acute embolism and thrombosis of superficial veins of left upper extremity (principal); Z88.0 Allergy status to penicillin; Z88.2 Allergy status to sulfonamides; Z88.8 Allergy status to other drugs, medicaments and biological substances
CPT/HCPCS: 93970

== ENCOUNTER → 2019-03-24 | Outpatient (CLI) | payer MEDICARE, BC ==
--- NOTE | 2019-03-24 12:19 | XR ---
EXAMINATION TYPE: XR shoulder complete RT DATE OF EXAM: 03/24/2019 CLINICAL HISTORY: Right shoulder pain with no stated injury. TECHNIQUE: Three views of the right shoulder are obtained. COMPARISON: None. FINDINGS: There is no acute fracture/dislocation evident in the right shoulder. Right-sided Mediport is partially visualized. The acromioclavicular joint demonstrates mild arthropathy with small margin al osteophytes the glenohumeral joint space appears within normal limits. The visualized ribs are in tact and unremarkable. IMPRESSION: There is no acute fracture or dislocation in the right shoulder. Mild acromioclavicular arthropathy. Partially visualized right Mediport.
--- NOTE | 2019-03-24 12:24 | XR ---
EXAMINATION TYPE: XR chest 2V DATE OF EXAM: 03/24/2019 COMPARISON: 02/21/2019 HISTORY: 79-year-old female right arm pain. TECHNIQUE: Frontal and lateral views FINDINGS: Right anterior chest wall injection port with catheter tip at the mid SVC level. Heart normal size. A gurvinder and pulmonary vasculature are within normal limits. Mild interstitial prominence has a chronic a ppearance. No consolidation or pleural effusion. Moderate endplate spondylosis midthoracic spine. IMPRESSION: No acute cardiopulmonary process.
--- NOTE | 2019-03-24 12:34 | XR ---
EXAMINATION TYPE: XR humerus RT DATE OF EXAM: 03/24/2019 CLINICAL HISTORY: Nontraumatic right arm pain TECHNIQUE: Two views of the right humerus are obtained. COMPARISON: None. FINDINGS: There is partial visualization of the right Mediport. There is no acute fracture or disloca tion seen in the right humerus. The right shoulder and elbow joints appear within normal limits othe r than mild acromio clavicular arthropathy. The overlying soft tissue appears within normal limits. IMPRESSION: No acute fracture or dislocation is evident in the right humerus.
--- NOTE | 2019-03-24 12:35 | XR ---
EXAMINATION TYPE: XR clavicle RT DATE OF EXAM: 03/24/2019 COMPARISON: NONE HISTORY: 79-year-old female right arm pain TECHNIQUE: 2 views FINDINGS: Moderate degenerative joint space narrowing with marginal spurring at the AC joint. Subacromial space is preserved. Clavicle shows no evidence for acute fracture. IMPRESSION: Moderate AC joint OA. Clavicle without acute osseous abnormality seen.
== END | disposition home or self-care (01) ==
LOC: RADXRMAIN 11:28
PROVIDERS: ATTEND Internal Medicine Hematology & Oncology
DX: M19.011 Primary osteoarthritis, right shoulder (principal); I10 Essential (primary) hypertension; C25.9 Malignant neoplasm of pancreas, unspecified; M10.9 Gout, unspecified
CPT/HCPCS: 71046

== ENCOUNTER 2019-05-14 14:34 | Emergency (ER) | payer MEDICARE, BC ==
[2019-05-14] MEDS ORDERED: SODIUM CHLORIDE 0.9% 1,000 ML IV STA (15:05)
--- NOTE | 2019-05-14 15:25 | ED ---
General Adult HPI - General Chief complaint: Recheck/Abnormal Lab/Rx Stated complaint: abnormal labs, sent by Time Seen by Provider: 05/14/19 14:55 Source: patient, RN notes reviewed, old records reviewed Mode of arrival: ambulatory Limitations: no limitations - History of Present Illness Initial comments: 79-year-old female patient past history significant for pancreatic cancer, currently receiving chemotherapy presents to ED with chief complaint of hyponatremia. Patient reports that she had labs drawn 2 days ago at [facility] while receiving chemotherapy and displayed a sodium level of 123. Patient is asymptomatic. Patient presents to ED at the request of primary care physician for repeat sodium level. Patient denies any point at this time. Systemic: Pt denies fatigue, fever/chills, rash. Pt denies weakness, night sweats, weight loss. Neuro: Pt denies headache, visual disturbances, syncope or pre-syncope. HEENT: Pt denies ocular discharge or irritation, otalgia, rhinorrhea, pharyngitis or notable lymphadenopathy. Cardiopulmonary: Pt denies chest pain, SOB, heart palpitations, dyspnea on exertion. Abdominal/GI: Pt denies abdominal pain, n/v/d. : Pt denies dysuria, burning w/ urination, frequency/urgency. Denies new onset urinary or bowel incontinence. MSK: Pt denies myalgia, loss of strength or function in extremities. Neuro: Pt denies new onset weakness, paresthesias. - Related Data Home Medications Medication Instructions Recorded Confirmed Allopurinol [Zyloprim] 200 mg PO DAILY 05/16/16 05/06/19 Atorvastatin [Lipitor] 10 mg PO HS 05/16/16 05/06/19 Indapamide [Lozol] 2.5 mg PO DAILY 05/16/16 05/06/19 Metoprolol Tartrate [Lopressor] 50 mg PO BID 05/16/16 05/06/19 Multivitamins, Thera [Multivitamin] 1 tab PO HS 05/16/16 05/06/19 Valsartan [Diovan] 160 mg PO DAILY 05/16/16 05/06/19 amLODIPine [Norvasc] 5 mg PO DAILY@1800 02/14/18 05/06/19 Ascorbic Acid [Vitamin C] 500 mg PO DAILY 02/21/19 05/06/19 Previous Rx's Medication Instructions Recorded Nitrofurantoin Monohyd/M-Cryst 100 mg PO Q12HR 5 Days #10 cap 05/14/19 [Macrobid] Allergies Allergy/AdvReac Type Severity Reaction Status Date / Time Penicillins Allergy Rash/Hives Verified 05/14/19 14:41 Sulfa (Sulfonamide Allergy mouth sores Verified 05/14/19 14:41 Antibiotics) lisinopril [From Zestril] AdvReac Cough Verified 05/14/19 14:41 Review of Systems ROS Statement: Those systems with pertinent positive or pertinent negative responses have been documented in the HPI. ROS Other: All systems not noted in ROS Statement are negative. Past Medical History Past Medical History: Cancer, Hyperlipidemia, Hypertension, Osteoarthritis (OA) Additional Past Medical History / Comment(s): Gout. Hx skin cancer - MELANOMA X1. POS COLOGUARD TEST. OCC BLOOD W/ BOWEL MOVEMENT. PANCREATIC CANCER History of Any Multi-Drug Resistant Organisms: None Reported Past Surgical History: Section, Hysterectomy Additional Past Surgical History / Comment(s): C-S X3. Omero cataracts. COLONOSC OPY Past Anesthesia/Blood Transfusion Reactions: No Reported Reaction Past Psychological History: No Psychological Hx Reported Smoking Status: Never smoker Past Alcohol Use History: None Reported, Rare Past Drug Use History: None Reported - Past Family History Mother Family Medical History: Cancer Father Family Medical History: Cancer General Exam - General Exam Comments Initial Comments: Constitutional: NAD, AOX3, Pt has pleasant affect. HEENT: NC/AT, trachea midline, neck supple, no lymphadenopathy. Posterior pha rynx non erythematous, without exudates. External ears appear normal, without discharge. Mucous membranes moist. Eyes PERRLA, EOM intact. There is no scleral icterus. No pallor noted. Cardiopulmonary: RRR, no murmurs, rubs or gallops, no JVD noted. Lungs CTAB in anterior and posterior tucker. No peripheral edema. Abdominal exam: Abdomen soft and non-distended. Abdomen non-tender to palpation in all 4 quadrants. Bowel sounds active in LLQ. No hepatosplenomegaly. No ecchymosis Neuro: CN II-XII grossly intact. No nuchal rigidity. No raccon eyes, no jimenes sign, no hemotympanum. No cervical spinal tenderness. MSK: No posterior calf tenderness bilaterally, homans sign negative bilaterally. Posterior tibialis and radial pulse +2 bilaterally. Sensation intact in upper and lower extremities. Full active ROM in upper and lower extremities, 5/5 stregnth. Limitations: no limitations Course Vital Signs 05/14/19 14:39 Temperature 98.2 F Pulse Rate 68 Respiratory 20 Rate Blood Pressure 134/72 O2 Sat by Pulse 98 Oximetry Medical Decision Making - Medical Decision Making 79-year-old female patient past history significant for pancreatic cancer, currently receiving chemotherapy presents to ED with chief complaint of hyponatremia. Patient reports that she had labs drawn 2 days ago at [facility] while receiving chemotherapy and displayed a sodium level of 123. Patient is asymptomatic. Patient presents to ED at the request of primary care physician for repeat sodium level. Patient denies any point at this time. Patient also stable, afebrile. Physical exam did not display acute pathology. Laboratory investigations revealed hemoglobin of 7.8. Sodium of 128. UA displayed mild urinary tract infection. Patient reports that hemoglobin is improved from prior. Patient discharged with close outpatient follow-up with [facility] care provider. Patient was treated for urinary tract infection. Case discussed with Dr. Quintana. - Lab Data Result diagrams: 05/14/19 16:40 05/14/19 16:40 Lab Results 05/14/19 05/14/19 05/14/19 Range/Units 15:43 16:40 16:40 WBC 4.5 (3.8-10.6) k/uL RBC 2.50 L (3.80-5.40) m/uL Hgb 7.8 L (11.4-16.0) gm/dL Hct 22.5 L (34.0-46.0) % MCV 90.1 (80.0-100.0) fL MCH 31.3 (25.0-35.0) pg MCHC 34.7 (31.0-37.0) g/dL RDW 17.3 H (11.5-15.5) % Plt Count 106 L (150-450) k/uL Neutrophils % 58 % Lymphocytes % 22 % Monocytes % 14 % Eosinophils % 2 % Basophils % 2 % Neutrophils # 2.6 (1.3-7.7) k/uL Lymphocytes # 1.0 (1.0-4.8) k/uL Monocytes # 0.6 (0-1.0) k/uL Eosinophils # 0.1 (0-0.7) k/uL Basophils # 0.1 (0-0.2) k/uL Anisocytosis Slight Sodium 128 L (137-145) mmol/L Potassium 4.0 (3.5-5.1) mmol/L Chloride 91 L (98-107) mmol/L Carbon Dioxide 27 (22-30) mmol/L Anion Gap 10 mmol/L BUN 29 H (7-17) mg/dL Creatinine 1.08 H (0.52-1.04) mg/dL Est GFR (CKD-EPI)AfAm 56 (>60 ml/min/1.73 sqM) Est GFR (CKD-EPI)NonAf 48 (>60 ml/min/1.73 sqM) Glucose 98 (74-99) mg/dL Calcium 8.3 L (8.4-10.2) mg/dL Total Bilirubin 0.4 (0.2-1.3) mg/dL AST 60 H (14-36) U/L ALT 86 H (9-52) U/L Alkaline Phosphatase 134 H (38-126) U/L Total Protein 5.0 L (6.3-8.2) g/dL Albumin 2.9 L (3.5-5.0) g/dL Urine Color Dark Yellow Urine Appearance Clear (Clear) Urine pH 5.5 (5.0-8.0) Ur Specific [place] 1.034 (1.001-1.035) Urine Protein Trace H (Negative) Urine Glucose (UA) Negative (Negative) Urine Ketones Negative (Negative) Urine Blood Negative (Negative) Urine Nitrite Negative (Negative) Urine Bilirubin Negative (Negative) Urine Urobilinogen <2.0 (<2.0) mg/dL Ur Leukocyte Esterase Moderate H (Negative) Urine RBC 5 (0-5) /hpf Urine WBC 10 H (0-5) /hpf Ur Squamous Epith Cells 1 (0-4) /hpf Urine Bacteria Occasional H (None) /hpf Hyaline Casts 31 H (0-2) /lpf Urine Mucus Rare H (None) /hpf Disposition Clinical Impression: UTI (urinary tract infection) Disposition: HOME SELF-CARE Condition: Stable Instructions (If sedation given, give patient instructions): Urinary Tract Infection in Men (ED) Additional Instructions: Patient to adhere to previously discussed treatment plan and will take med ication(s) as directed. Patient to follow up with PCP in 1-2 days. Patient to return to ED if symptoms do not improve. Follow-up with primary care provider, take medication as directed. Return to ER condition worsens. Prescriptions: Nitrofurantoin Monohyd/M-Cryst [Macrobid] 100 mg PO Q12HR 5 Days #10 cap Is patient prescribed a controlled substance at d/c from ED?: No Referrals: Hayden Alfonso MD [Primary Care Provider] - 1-2 days
[2019-05-14 16:21] LABS: Appearance,Urine Clear (Clear); Bacteria,Urine Occasional /hpf; Bilirubin,Urine Negative (Negative); Blood,Urine Negative (Negative); Color,Urine Dark Yellow; Glucose,Urine (UA) Negative (Negative); Hyaline Casts,Urine 31 /lpf (0-2); Ketones,Urine Negative (Negative); Leukocyte Esterase,Urine Moderate (Negative); Mucus,Urine Rare /hpf; Nitrite,Urine Negative (Negative); PH, Urine 5.5 (5.0-8.0); Protein,Urine Trace (Negative); RBC,Urine 5 /hpf (0-5); Specific Gravity,Urine 1.034 (1.001-1.035); Squamous Epithelial Cell,Urine 1 /hpf (0-4); Urobilinogen,Urine <2.0 mg/dL (<2.0); WBC,Urine 10 /hpf (0-5)
[2019-05-14 17:11] LABS: Anisocytosis Slight; Basophils # (A) 0.1 k/uL (0-0.2); Basophils % (A) 2 %; Eosinophils # (A) 0.1 k/uL (0-0.7); Eosinophils % (A) 2 %; HCT 22.5 % (34.0-46.0); HGB 7.8 gm/dL (11.4-16.0); Lymphocytes % (A) 22 %; MCH 31.3 pg (25.0-35.0); MCHC 34.7 g/dL (31.0-37.0); MCV 90.1 fL (80.0-100.0); Monocytes # (A) 0.6 k/uL (0-1.0); Monocytes % (A) 14 %; Neutrophils # (A) 2.6 k/uL (1.3-7.7); Neutrophils % (A) 58 %; Platelet Count 106 k/uL (150-450); RDW 17.3 % (11.5-15.5); WBC 4.5 k/uL (3.8-10.6)
[2019-05-14 17:18] LABS: Albumin 2.9 g/dL (3.5-5.0); Calcium 8.3 mg/dL (8.4-10.2); Total Bilirubin 0.4 mg/dL (0.2-1.3)
[2019-05-14] MEDS ORDERED: NITROFURANTOIN MONOHYD/M-CRYST 100 MG CAP PO STA (18:10)
--- NOTE | 2019-05-14 18:34 | ED ---
Medical Decision Making - Lab Data Result diagrams: 05/14/19 16:40 05/14/19 16:40 Lab Results 05/14/19 05/14/19 05/14/19 Range/Units 15:43 16:40 16:40 WBC 4.5 (3.8-10.6) k/uL RBC 2.50 L (3.80-5.40) m/uL Hgb 7.8 L (11.4-16.0) gm/dL Hct 22.5 L (34.0-46.0) % MCV 90.1 (80.0-100.0) fL MCH 31.3 (25.0-35.0) pg MCHC 34.7 (31.0-37.0) g/dL RDW 17.3 H (11.5-15.5) % Plt Count 106 L (150-450) k/uL Neutrophils % 58 % Lymphocytes % 22 % Monocytes % 14 % Eosinophils % 2 % Basophils % 2 % Neutrophils # 2.6 (1.3-7.7) k/uL Lymphocytes # 1.0 (1.0-4.8) k/uL Monocytes # 0.6 (0-1.0) k/uL Eosinophils # 0.1 (0-0.7) k/uL Basophils # 0.1 (0-0.2) k/uL Anisocytosis Slight Sodium 128 L (137-145) mmol/L Potassium 4.0 (3.5-5.1) mmol/L Chloride 91 L (98-107) mmol/L Carbon Dioxide 27 (22-30) mmol/L Anion Gap 10 mmol/L BUN 29 H (7-17) mg/dL Creatinine 1.08 H (0.52-1.04) mg/dL Est GFR (CKD-EPI)AfAm 56 (>60 ml/min/1.73 sqM) Est GFR (CKD-EPI)NonAf 48 (>60 ml/min/1.73 sqM) Glucose 98 (74-99) mg/dL Calcium 8.3 L (8.4-10.2) mg/dL Total Bilirubin 0.4 (0.2-1.3) mg/dL AST 60 H (14-36) U/L ALT 86 H (9-52) U/L Alkaline Phosphatase 134 H (38-126) U/L Total Protein 5.0 L (6.3-8.2) g/dL Albumin 2.9 L (3.5-5.0) g/dL Urine Color Dark Yellow Urine Appearance Clear (Clear) Urine pH 5.5 (5.0-8.0) Ur Specific [place] 1.034 (1.001-1.035) Urine Protein Trace H (Negative) Urine Glucose (UA) Negative (Negative) Urine Ketones Negative (Negative) Urine Blood Negative (Negative) Urine Nitrite Negative (Negative) Urine Bilirubin Negative (Negative) Urine Urobilinogen <2.0 (<2.0) mg/dL Ur Leukocyte Esterase Moderate H (Negative) Urine RBC 5 (0-5) /hpf Urine WBC 10 H (0-5) /hpf Ur Squamous Epith Cells 1 (0-4) /hpf Urine Bacteria Occasional H (None) /hpf Hyaline Casts 31 H (0-2) /lpf Urine Mucus Rare H (None) /hpf Disposition Clinical Impression: UTI (urinary tract infection) Disposition: HOME SELF-CARE Condition: Stable Instructions (If sedation given, give patient instructions): Urinary Tract Infe ction in Women (ED), Hyponatremia (ED) Additional Instructions: Patient to adhere to previously discussed treatment plan and will take medication(s) as directed. Patient to follow up with PCP in 1-2 days. Patient to return to ED if symptoms do not improve. Follow-up with primary care provider, take medication as directed. Return to ER condition worsens. Prescriptions: Nitrofurantoin Monohyd/M-Cryst [Macrobid] 100 mg PO Q12HR 5 Days #10 cap Is patient prescribed a controlled substance at d/c from ED?: No Referrals: Hayden Alfonso MD [Primary Care Provider] - 1-2 days
[2019-05-14 18:53] VITALS: BP 134/64; PULSE 86; RESP 18; TEMP 97.4
== END 2019-05-14 19:04 | disposition home or self-care (01) ==
LOC: EC 14:34
DX: N39.0 Urinary tract infection, site not specified (principal); E87.1 Hypo-osmolality and hyponatremia; E78.5 Hyperlipidemia, unspecified; I10 Essential (primary) hypertension; M10.9 Gout, unspecified; Z85.820 Personal history of malignant melanoma of skin; Z85.07 Personal history of malignant neoplasm of pancreas; Z92.21 Personal history of antineoplastic chemotherapy; Z79.899 Other long term (current) drug therapy; Z88.0 Allergy status to penicillin; Z88.2 Allergy status to sulfonamides; Z88.8 Allergy status to other drugs, medicaments and biological substances
CPT/HCPCS: 36415; 80053; 81001; 83735; 83930; 83935; 85025; 96360; 99284